=== PATIENT | female | born 1945 | race Two or more races ===

== ENCOUNTER → 2018-06-11 | Outpatient (CLI) | payer MEDICARE, OTHER | END | disposition home or self-care (01) | LOC: Rad HDHVI 13:15 | PROVIDERS: ATTEND Internal Medicine Cardiovascular Disease | DX: I34.0 Nonrheumatic mitral (valve) insufficiency (principal); I65.22 Occlusion and stenosis of left carotid artery; E11.9 Type 2 diabetes mellitus without complications; R09.89 Other specified symptoms and signs involving the circulatory and respiratory systems | CPT/HCPCS: 93306; 93880 ==

== ENCOUNTER → 2018-06-16 | Outpatient (CLI) | payer MEDICARE, OTHER ==
[~2018-06-16] VITALS: Ht 152.4 cm; Wt 75.3 kg
[~2018-06-16] MED LIST: ADENOSINE 63 MG in GIVE UN-DILUTED 0 ML IV ONE; ADENOSINE 90 MG/30 ML INJ IV ONE
== END | disposition home or self-care (01) ==
LOC: Rad HDHVI 13:14
PROVIDERS: ATTEND Internal Medicine Cardiovascular Disease
DX: Z01.810 Encounter for preprocedural cardiovascular examination (principal); E78.00 Pure hypercholesterolemia, unspecified; E11.9 Type 2 diabetes mellitus without complications
CPT/HCPCS: 78452; 93005; 96374; 96375; A9500; J0153